=== PATIENT | male | born 1960 | race Caucasian/White ===

== ENCOUNTER 2020-06-26 06:41 | Emergency (ER) | payer MEDICAID ==
[~2020-06-26] VITALS: Ht 167.6 cm; Wt 63.5 kg
[2020-06-26 06:45] VITALS: BP 154/93
--- NOTE | 2020-06-26 06:49 | NUR ---
PT AMBULATED TO BED 07 WITH STEADY GAIT.
[2020-06-26] MEDS ORDERED: IBUPROFEN 800 MG TAB PO ONE (06:55)
[2020-06-26] MEDS ORDERED: KETAMINE 500 MG/5 ML VIAL IVP ONE (07:10)
[2020-06-26] MEDS ORDERED: PROPOFOL 200 MG/20 ML VIAL IV ONE (07:10)
--- NOTE | 2020-06-26 07:15 | NUR ---
REPORT GIVEN TO JASWANT GENAO
--- NOTE | 2020-06-26 07:15 | NUR ---
REPORT RECEIVED FROM CHRISTA GENAO, TRANSFER OF CARE AT THIS TIME
--- NOTE | 2020-06-26 07:15 | NUR ---
PT STATES HE FELL THIS MORNING AND LANDED ON HIS LEFT SHOULDER. CURRENTLY HAVING 10/10 PAIN, UNABLE TO MOVE SHOULDER, PT UNABLE TO MOVE FINGERS AND PALPABLE RADIAL PULSE. PT PLACED IN BED, BED IN LOWEST POSITION AND SIDERAIL UP X 1. NKA
--- NOTE | 2020-06-26 07:30 | NUR ---
PROCEDURE CONSENT SIGNED BY PATIENT, RN, ERMD FOR LEFT SHOULDER REDUCTION
--- NOTE | 2020-06-26 07:48 | NUR ---
SEE MODERATE SEDATION RECORD PHYSICAL SHEET FOR CHARTING
--- NOTE | 2020-06-26 07:48 | NUR ---
LEFT SHOULDER REDUCTION PROCEDURE STARTED WITH PRIMARY RN, RT, ERMD, AND EMT AT BEDSIDE OF PT. PT ATTACHED TO MONITOR, VS STABLE.
--- NOTE | 2020-06-26 08:01 | NUR ---
PROCEDURE COMPLETED. PT REMAINS ON MONITOR WITH TEAM AT BEDSIDE, VS STABLE.
--- NOTE | 2020-06-26 08:03 | NUR ---
BEE PRODUCER AT BEDSIDE
--- NOTE | 2020-06-26 08:06 | NUR ---
PT PLACED IN LEFT SHOULDER IMMOBILIZOR
--- NOTE | 2020-06-26 08:20 | NUR ---
PT AROUSABLE TO VOICE. PT REMAINS ON MONITOR, VS STABLE. BREATHING EVEN AND UNLABORED, NO DISTRESS NOTED.
--- NOTE | 2020-06-26 08:30 | NUR ---
PT AROUSABLE TO VOICE. PT REMAINS ON MONITOR, VS STABLE. BREATHING EVEN AND UNLABORED, NO DISTRESS NOTED.
--- NOTE | 2020-06-26 09:15 | NUR ---
PT AOX4, BREATHING EVEN AND UNLABORED. PT STATES HIS ARM FEELS MUCH BETTER. CAP REFILL < 3 SEC, RADIAL PULSE +3 IN LEFT EXTREMITY
[2020-06-26 09:35] VITALS: BP 154/91
--- NOTE | 2020-06-26 09:35 | NUR ---
pt to be picked up by loved one by car
--- NOTE | 2020-06-26 09:35 | NUR ---
Patient discharged with v/s stable. Written and verbal after care instructions about shoulder dislocation given and explained. Patient alert, oriented and verbalized understanding of instructions. Ambulatory with steady gait. All questions addressed prior to discharge. ID band removed. Patient advised to follow up with PMD. Rx of norco and ibuprofen given. Patient educated on indication of medication including possible reaction and side effects. Opportunity to ask questions provided and answered.
== END 2020-06-26 09:35 | disposition home or self-care (01) ==
LOC: MED 06:41
DX: S43.005A Unspecified dislocation of left shoulder joint, initial encounter (principal); I10 Essential (primary) hypertension; W19.XXXA Unspecified fall, initial encounter; Y93.89 Activity, other specified; Y92.39 Other specified sports and athletic area as the place of occurrence of the external cause; Y99.8 Other external cause status
CPT/HCPCS: 73030; 96374; 96375; 99285; J2704

== ENCOUNTER 2023-12-26 22:58 | Emergency (ER) | payer MEDICAID, OTHER ==
[~2023-12-26] VITALS: Ht 167.6 cm; Wt 63.5 kg
[2023-12-26 23:10] VITALS: BP 189/118; PULSE 91; RESP 16; TEMP 97.4; O2SAT 98
[2023-12-26] MEDS ORDERED: KETOROLAC 30 MG/ML VIAL ONE ×2 (23:53→23:55)
[2023-12-27] MEDS: KETOROLAC 60 MG/2 ML VIAL IM ONE (00:01)
[2023-12-27] MEDS ORDERED: ACET-8905 PO (00:35)
[2023-12-27] MEDS ORDERED: IBUP-2213 PO (00:35)
[2023-12-27 00:47] VITALS: BP 160/98; PULSE 82; RESP 16; TEMP 98; O2SAT 98
== END 2023-12-27 00:47 | disposition home or self-care (01) ==
LOC: MED 22:58
DX: S52.352A Displaced comminuted fracture of shaft of radius, left arm, initial encounter for closed fracture (principal); S01.81XA Laceration without foreign body of other part of head, initial encounter; I10 Essential (primary) hypertension; F17.200 Nicotine dependence, unspecified, uncomplicated; Z79.899 Other long term (current) drug therapy; Z98.890 Other specified postprocedural states; W13.2XXA Fall from, out of or through roof, initial encounter; Y93.89 Activity, other specified; Y92.89 Other specified places as the place of occurrence of the external cause; Y99.8 Other external cause status
CPT/HCPCS: 12011; 29105; 73110; 90471; 90715; 96372; 99284; J1885

== ENCOUNTER 2024-05-01 17:12 | Emergency (ER) | payer OTHER ==
[~2024-05-01] VITALS: Ht 160 cm; Wt 51.9 kg
[~2024-05-01 17:12] MED LIST: ACET-8905 PO; IBUP-2213 PO
[2024-05-01 17:27] VITALS: BP 180/101; PULSE 100; RESP 18; TEMP 97.6; O2SAT 98
[2024-05-01] MEDS: KETOROLAC 30 MG/ML VIAL IM ONE (18:52)
[2024-05-01] MEDS: PROPOFOL 200 MG/20 ML VIAL IV ONE (19:05)
[2024-05-01 19:18] VITALS: TEMP 97.6
[2024-05-01] MEDS: NACL 0.9% 500 ML IV ONE (19:21)
[2024-05-01] MEDS ORDERED: IBUP-2213 PO (20:59)
[2024-05-01 21:17] VITALS: BP 189/114; PULSE 70; RESP 20; O2SAT 100
== END 2024-05-01 21:19 | disposition home or self-care (01) ==
LOC: MED 17:12
DX: S43.015A Anterior dislocation of left humerus, initial encounter (principal); I10 Essential (primary) hypertension; Z79.899 Other long term (current) drug therapy; X50.0XXA Overexertion from strenuous movement or load, initial encounter; Y92.89 Other specified places as the place of occurrence of the external cause; Y93.89 Activity, other specified; Y99.0 Civilian activity done for income or pay
CPT/HCPCS: 23650; 73030; 96360; 96372; 99152; 99285; J1885; J2704; J7030; Q0092